=== PATIENT | female | born 1995 | race Caucasian/White ===

== ENCOUNTER 2018-06-17 18:37 | Emergency (ER) | payer MEDICAID, OTHER ==
[2018-06-17 20:52] LABS: ABS Basophils 0 10^3/ul (0-0.2); ABS Eosinophils 0.3 10^3/ul (0-0.6); ABS Lymphocytes 3.8 10^3/ul (1.0-4.8); ABS Monocytes 0.8 10^3/ul (0-0.8); ABS Neutrophils 7.4 10^3/ul (1.5-7.7); ABS Nucleated RBC 0 10^3/ul; Eosinophil % 2.4 %; Hematocrit 43 % (35-47); Hemoglobin 14.6 g/dl (12.0-16.0); Mean Corpuscular HGB Conc 34 g/dl (31-36); Mean Corpuscular Hemoglobin 30 pg (27-31); Mean Corpuscular Volume 89 fL (80-97); Mean Platelet Volume 7.2 fL (7.4-10.4); Nucleated Red Blood Cells % 0; Platelet Count 286 10^3/ul (150-450); Red Blood Count 4.87 10^6/ul (4.00-5.40); Red Cell Distribution Width 13 % (10.5-15); White Blood Count 12.4 10^3/ul (3.5-10.8)
[2018-06-17 21:07] LABS: Albumin 3.9 g/dL (3.2-5.2); Albumin/Globulin Ratio 1.3 (1-3); BUN/Creatinine Ratio 15.2 (8-20); C Reactive Protein 1.43 mg/L (<8.01); Calcium 9.7 mg/dL (8.6-10.3); Potassium 4.3 mmol/L (3.5-5.0); Total Bilirubin 0.2 mg/dL (0.2-1.0); Total Protein 6.9 g/dL (6.4-8.9)
--- NOTE | 2018-06-17 21:30 | ED ---
Skin Complaint - HPI Summary HPI Summary: Patient complains of redness, pain and swelling at site of tattoo placed on right hip 3 weeks ago. Patient was evaluated by [facility] 1 week ago and placed on steroid cream and doxycycline, with no improvement after 6 days of medication. Patient denies fever, cough, sore throat, CP, SOB, N/V/D, abdominal pain, change in urine, change in BM. Medical history is none. - History of Current Complaint Chief Complaint: EDGeneral Time Seen by Provider: 06/17/18 20:18 Stated Complaint: POSSIBLE INFECTION ON RT HIP Hx Obtained From: Patient Onset/Duration: Started Weeks Ago Skin Exposure Onset/Duration: Weeks Ago Timing: Constant Onset Severity: Moderate Current Severity: Moderate Pain Intensity: 5 Pain Scale Used: 0-10 Numeric Skin Location: Discrete Aggravating Symptom(s): Touch Alleviating Symptom(s): Nothing Associated Signs & Symptoms: Negative - Allergy/Home Medications Allergies/Adverse Reactions: Allergies Allergy/AdvReac Type Severity Reaction Status Date / Time No Known Allergies Allergy Verified 06/17/18 18:56 Home Medications: Home Medications Betamethasone Dip 0.05% ON(NF) [Betamethasone Dipr 0.05% OINT(NF)] 1 applic .SEE ORDER DAILY 06/17/18 [History Confirmed 06/17/18] DOXYcycline CAP(*) [DOXYcycline 100MG CAP(*)] 100 mg PO BID 06/17/18 [History Confirmed 06/17/18] PMH/Surg Hx/FS Hx/Imm Hx Endocrine/Hematology History: Denies: Hx Anticoagulant Therapy Cardiovascular History: Denies: Hx Cardiac Arrest History: Denies: Hx Dialysis Sensory History: Denies: Hx Eye Prosthesis EENT History: Denies: Hx Deafness Neurological History: Denies: Hx Developmental Delay Psychiatric History: Denies: Hx Autism Infectious Disease History: No Infectious Disease History: Denies: Traveled Outside the [place] in Last 30 Days - Family History Known Family History: Positive: Non-Contributory - Social History Alcohol Use: Occasionally Substance Use Type: Reports: None Smoking Status (MU): Light Every Day Tobacco Smoker Review of Systems Constitutional: Negative Eyes: Negative ENT: Negative Cardiovascular: Negative Respiratory: Negative Gastrointestinal: Negative Genitourinary: Negative Musculoskeletal: Negative Positive: Rash Neurological: Negative Psychological: Normal All Other Systems Reviewed And Are Negative: Yes Physical Exam - Summary Physical Exam Summary: Redness and erythema at site of tattoo on right hip. No purulent discharge. Granulated tissue present. No extra warmth, ecchymosis, noted. Full range of motion of right hip. Triage Information Reviewed: Yes Vital Signs On Initial Exam: Initial Vitals Temp Pulse Resp BP Pulse Ox 97.7 F 97 16 106/77 100 06/17/18 18:50 06/17/18 18:50 06/17/18 18:50 06/17/18 18:50 06/17/18 18:50 Vital Signs Reviewed: Yes Appearance: Positive: Well-Appearing Skin: Positive: Warm Head/Face: Positive: Normal Head/Face Inspection Eyes: Positive: Normal Neck: Positive: Supple Respiratory/Lung Sounds: Positive: Clear to Auscultation Cardiovascular: Positive: Normal Abdomen Description: Positive: Nontender Musculoskeletal: Positive: Normal Neurological: Positive: Normal Psychiatric: Positive: Normal AVPU Assessment: Alert - [place] Coma Scale Best Eye Response: 4 - Spontaneous Best Motor Response: 6 - Obeys Commands Best Verbal Response: 5 - Oriented Coma Scale Total: 15 Diagnostics - Vital Signs Vital Signs Temp Pulse Resp BP Pulse Ox 06/17/18 18:50 97.7 F 97 16 106/77 100 - Laboratory Lab Results: Lab Results 06/17/18 06/17/18 06/17/18 Range/Units 20:41 20:41 20:41 WBC 12.4 H (3.5-10.8) 10^3/ul RBC 4.87 (4.00-5.40) 10^6/ul Hgb 14.6 (12.0-16.0) g/dl Hct 43 (35-47) % MCV 89 (80-97) fL MCH 30 (27-31) pg MCHC 34 (31-36) g/dl RDW 13 (10.5-15) % Plt Count 286 (150-450) 10^3/ul MPV 7.2 L (7.4-10.4) fL Neut % (Auto) 60.0 % Lymph % (Auto) 31.0 % [place] % (Auto) 6.2 % Eos % (Auto) 2.4 % Baso % (Auto) 0.4 % Absolute Neuts (auto) 7.4 (1.5-7.7) 10^3/ul Absolute Lymphs (auto) 3.8 (1.0-4.8) 10^3/ul Absolute Monos (auto) 0.8 (0-0.8) 10^3/ul Absolute Eos (auto) 0.3 (0-0.6) 10^3/ul Absolute Basos (auto) 0 (0-0.2) 10^3/ul Absolute Nucleated RBC 0 10^3/ul Nucleated RBC % 0 Sodium 135 (135-145) mmol/L Potassium 4.3 (3.5-5.0) mmol/L Chloride 101 (101-111) mmol/L Carbon Dioxide 28 (22-32) mmol/L Anion Gap 6 (2-11) mmol/L BUN 10 (6-24) mg/dL Creatinine 0.66 (0.51-0.95) mg/dL Est GFR ( Amer) 134.3 (>60) Est GFR (Non-Af Amer) 111.0 (>60) BUN/Creatinine Ratio 15.2 (8-20) Glucose 91 (70-100) mg/dL Lactic Acid 1.1 (0.5-2.0) mmol/L Calcium 9.7 (8.6-10.3) mg/dL Total Bilirubin 0.20 (0.2-1.0) mg/dL AST 15 (13-39) U/L ALT 10 (7-52) U/L Alkaline Phosphatase 74 (34-104) U/L C-Reactive Protein 1.43 (<8.01) mg/L Total Protein 6.9 (6.4-8.9) g/dL Albumin 3.9 (3.2-5.2) g/dL Globulin 3.0 (2-4) g/dL Albumin/Globulin Ratio 1.3 (1-3) Result Diagrams: 06/17/18 20:41 06/17/18 20:41 Lab Statement: Any lab studies that have been ordered have been reviewed, and results considered in the medical decision making process. Course/Dx - Course Course Of Treatment: Patient complains of redness, pain and swelling at site of tattoo placed on right hip 3 weeks ago. Patient was evaluated by [facility] 1 week ago and placed on steroid cream and doxycycline, with no improvement after 6 days of medication. Patient denies fever, cough, sore throat, CP, SOB, N/V/D, abdominal pain, change in urine, change in BM. Medical history is none. Physical exam:Redness and erythema at site of tattoo on right hip. No purulent discharge. Granulated tissue present. No extra warmth, ecchymosis, noted. Full range of motion of right hip. Vital signs within normal limits. WBC 12.4. Labs otherwise unremarkable. Wound culture pending. Diagnosis likely reaction to dye rather than infection. Advised patient to continue with antibiotics and follow-up with wound care. Patient understands and approves of plan. - Diagnoses Provider Diagnoses: Allergic reaction Discharge - Sign-Out/Discharge Documenting (check all that apply): Patient Departure - Discharge Plan Condition: Stable Disposition: HOME Patient Education Materials: General Allergic Reaction (ED) Referrals: No Primary Care Phys,NOPCP [Primary Care Provider] - Susanna Calvillo MD [Medical Doctor] - Additional Instructions: Continue to take antibiotics. Follow-up tomorrow with wound care Dr Calvillo for further evaluation. Alternate ibuprofen 600 mg with Tylenol 650 mg every 3 hours for pain. Return to the ED for any new or worsening symptoms - Billing Disposition and Condition Condition: STABLE Disposition: Home
[2018-06-17 21:40] VITALS: BP 146/54
--- NOTE | 2018-06-18 12:54 | ED ---
Progress - Progress Note Progress Note: Patient's wound culture returns positive strep pyogenes. Final sensitivities will be initiated and completed over the next couple of days. Patient was discharged with allergic reaction and no antibiotic treatment. She had taken doxycycline upon initial onset of symptoms without relief. She was also using a topical steroid to relieve her symptoms. Left message to call and will mail letter. Patient may benefit from change in antibiotic (would start keflex) and cessation of steroid topical. [employer] purchase and sale clerk aware. Course/Dx - Course Course Of Treatment: Patient complains of redness, pain and swelling at site of tattoo placed on right hip 3 weeks ago. Patient was evaluated by [facility] 1 week ago and placed on steroid cream and doxycycline, with no improvement after 6 days of medication. Patient denies fever, cough, sore throat, CP, SOB, N/V/D, abdominal pain, change in urine, change in BM. Medical history is none. Physical exam:Redness and erythema at site of tattoo on right hip. No purulent discharge. Granulated tissue present. No extra warmth, ecchymosis, noted. Full range of motion of right hip. Vital signs within normal limits. WBC 12.4. Labs otherwise unremarkable. Wound culture pending. Diagnosis likely reaction to dye rather than infection. Advised patient to continue with antibiotics and follow-up with wound care. Patient understands and approves of plan. - Diagnoses Provider Diagnoses: Allergic reaction Discharge - Sign-Out/Discharge Documenting (check all that apply): Post-Discharge Follow Up - Discharge Plan Condition: Stable Disposition: HOME Patient Education Materials: General Allergic Reaction (ED) Referrals: Susanna Calvillo MD [Medical Doctor] - No Primary Care Phys,NOPCP [Primary Care Provider] - Additional Instructions: Continue to take antibiotics. Follow-up tomorrow with wound care Dr Calvillo for further evaluation. Alternate ibuprofen 600 mg with Tylenol 650 mg every 3 hours for pain. Return to the ED for any new or worsening symptoms - Billing Disposition and Condition Condition: STABLE Disposition: Home
== END 2018-06-17 21:39 | disposition home or self-care (01) ==
LOC: ED 18:37
DX: T78.49XA Other allergy, initial encounter (principal); B95.0 Streptococcus, group A, as the cause of diseases classified elsewhere; X58.XXXA Exposure to other specified factors, initial encounter; F17.200 Nicotine dependence, unspecified, uncomplicated
CPT/HCPCS: 36415; 80053; 83605; 85025; 86140; 87070; 87077; 87184; 87186; 87205; 87640; 87641; 99282

== ENCOUNTER 2018-06-28 14:26 | Emergency (ER) | payer OTHER ==
[2018-06-28 14:40] VITALS: BP 128/68
--- NOTE | 2018-06-28 17:26 | ED ---
Skin Complaint - HPI Summary HPI Summary: Pt. is a 22 y.o female who presents to the ER for ongoing wound to right lower abd x one month. Pt. states she got a tattoo to her right lower abd. one month ago and shortly after area became red and painful. Pt. was seen at an outside facility around 06/10/18 and started on doxycycline and a steroid cream for infection. Pt. was then seen in our ER 06/17 for ongoing infection. Provider felt sx were more constant with an allergic rxn to dye and was instructed to stop antibx. Wound culture obtained at that time. Pt. presents today bc wound is not improving and she now as other small wounds to body. She notes chills without documented fever. No N/V. No significant past medical hx. Sxs are mild in severity. Touching affected area makes sxs worse. Nothing makes sxs better. - History of Current Complaint Chief Complaint: EDRashSkinAbscess Time Seen by Provider: 06/28/18 16:19 Stated Complaint: SORE ON RIGHT HIP/SORE THROAT Hx Obtained From: Patient Pain Intensity: 2 Pain Scale Used: 0-10 Numeric - Allergy/Home Medications Allergies/Adverse Reactions: Allergies Allergy/AdvReac Type Severity Reaction Status Date / Time No Known Allergies Allergy Verified 06/17/18 18:56 PMH/Surg Hx/FS Hx/Imm Hx Previously Healthy: Yes Endocrine/Hematology History: Denies: Hx Anticoagulant Therapy Cardiovascular History: Denies: Hx Cardiac Arrest History: Denies: Hx Dialysis Sensory History: Denies: Hx Eye Prosthesis, Hx Deafness Opthamlomology History: Denies: Hx Eye Prosthesis Neurological History: Denies: Hx Developmental Delay Psychiatric History: Denies: Hx Autism Infectious Disease History: No Infectious Disease History: Denies: Traveled Outside the [place] in Last 30 Days - Family History Known Family History: Positive: Non-Contributory - Social History Occupation: Unemployed Lives: With Family Alcohol Use: Occasionally Substance Use Type: Reports: None Smoking Status (MU): Light Every Day Tobacco Smoker Review of Systems Positive: Chills Gastrointestinal: Negative Negative: Vomiting, Nausea Positive: Other - wounds Neurological: Negative All Other Systems Reviewed And Are Negative: Yes Physical Exam Triage Information Reviewed: Yes Vital Signs On Initial Exam: Initial Vitals Temp Pulse Resp BP Pulse Ox 97.1 F 105 18 128/68 100 06/28/18 14:36 06/28/18 14:36 06/28/18 14:36 06/28/18 14:36 06/28/18 14:36 Vital Signs Reviewed: Yes Appearance: Positive: Well-Appearing Skin: Positive: Warm, Dry, Other - Area to right lower abd. roughly 5 cm in length there is scabbing with mild surrounding erythema. Slightly wet with a small amount of yellowish drainage. NO fluctuance or induration. Noted to right upper leg there is a small pustule and a small pustule to right upper arm. Head/Face: Positive: Normal Head/Face Inspection Eyes: Positive: Normal, EOMI Neck: Positive: Supple Respiratory/Lung Sounds: Positive: Clear to Auscultation, Breath Sounds Present Cardiovascular: Positive: Normal Abdomen Description: Positive: Nontender, Soft Musculoskeletal: Positive: Normal, Strength/ROM Intact Neurological: Positive: Normal, CN Intact II-III Psychiatric: Positive: Affect/Mood Appropriate Diagnostics - Vital Signs Vital Signs Temp Pulse Resp BP Pulse Ox 06/28/18 17:06 97.2 F 98 18 128/68 100 06/28/18 14:36 97.1 F 105 18 128/68 100 - Laboratory Lab Statement: Any lab studies that have been ordered have been reviewed, and results considered in the medical decision making process. Course/Dx - Course Course Of Treatment: Pt. presenting for ongoing wound over a tattoo she receieved a month ago. She is afebrile and well appearing. No signs of abscess on exam. She had a wound culture done from her last ER visit from wound that grew out strep group A. Based on culture ana cristina start on Augmentin. To call [facility] sunday for a close f.u apt. for wound check. Will return to ER if sxs change or worsen. - Differential Diagnoses - Skin Complaint Differential Diagnoses: Abscess, Cellulitis, Eczema, Impetigo - Diagnoses Provider Diagnoses: Infected wound Discharge - Sign-Out/Discharge Documenting (check all that apply): Patient Departure - Discharge Plan Condition: Good Disposition: HOME Prescriptions: Amoxicillin/Clavulanate TAB* [Augmentin TAB 875*] 875 mg PO BID #20 tab Patient Education Materials: Wound Infection (ED) Referrals: [facility] [Outside] Additional Instructions: Call the [facility] Sunday morning to schedule an appointment as soon as possible Antibiotic was started based on recent wound culture-take as directed Keep wounds clean and dry Return to ER for fever, vomiting, increased pain, redness, swelling, or if concerned - Billing Disposition and Condition Condition: GOOD Disposition: Home
== END 2018-06-28 17:06 | disposition home or self-care (01) ==
LOC: ED 14:26
DX: T81.49XA Infection following a procedure, other surgical site, initial encounter (principal); R10.31 Right lower quadrant pain; F17.210 Nicotine dependence, cigarettes, uncomplicated
CPT/HCPCS: 99282